=== PATIENT | female | born 1965 | race Caucasian/White ===

== ENCOUNTER → 2022-05-29 07:59 | Outpatient (CLI) | payer OTHER, SELFPAY | PROVIDERS: Visit Provider Physician Assistant | DX: R30.0 Dysuria (principal) | CPT/HCPCS: 87077; 87086; 87186 ==

== ENCOUNTER → 2023-04-01 08:16 | Outpatient (CLI) | payer OTHER, SELFPAY ==
--- NOTE | 2023-04-01 | DI.MG.S_ITS ---
BILATERAL DIGITAL SCREENING MAMMOGRAM 3D/2D WITH CAD: 04/01/2023 CLINICAL: Routine screening. Comparison is made to exams dated: 12/14/2021 breast MRI, 11/30/2021 mammogram, 11/03/2020 mammogram, and 11/02/2019 mammogram - outside location. Both breasts are extremely dense, which lowers the sensitivity of mammography (category d />75% glandular tissue). Current study was also evaluated with a Computer Aided Detection (CAD) system. No significant masses, calcifications, or other findings are seen in either breast. There has been no significant interval change. IMPRESSION: NEGATIVE There is no mammographic evidence of malignancy. A 1 year screening mammogram is recommended. Based on the Tyrer Cuzick model (a risk assessment model) the patient's lifetime risk is 16.3% and her 10 year risk is 6.1%. According to the ACR, ACS, and NCCN guidelines, an annual breast MRI exam along with mammogram is recommended if the patient's lifetime risk is 20% or greater. This exam was interpreted at Station ID: [id number]. NOTE: For mammograms, a report in lay terms will be sent to the patient. Approximately 15% of breast malignancies will not be visualized mammographically. In the management of a palpable breast mass, a negative mammogram must not discourage biopsy of a clinically suspicious lesion. Electronically Signed By: Juanito wilhelm/nadir:04/01/2023 12:03:19 letter sent: Normal Exam ACR BI-RADS Category 1: Negative 3341F
== END ==
PROVIDERS: PCP Physician Assistant; Referring Provider Physician Assistant; Visit Provider Physician Assistant
DX: Z12.31 Encounter for screening mammogram for malignant neoplasm of breast (principal)
CPT/HCPCS: 77063; 77067

== ENCOUNTER 2023-10-16 08:31 | Observation (INO) | payer OTHER, SELFPAY ==
[2023-10-16] VITALS (12 sets, daily range): BP systolic 97–136; BP diastolic 56–67; PULSE 51–73; RESP 14–18; TEMP 36.8; O2SAT 97–100; BMI 27.1
--- NOTE | 2023-10-16 08:54 | ED.ABDPAIN ---
HPI - Abdominal Pain General Chief Complaint: Abdominal Pain Stated Complaint: ABD lower R pain,vomiting, fever Time Seen by Provider: 10/16/23 08:54 Source: patient Mode of arrival: Ambulatory Limitations: no limitations History of Present Illness HPI narrative: 57-year-old female with history of hypothyroidism and dyslipidemia. Patient presents with abdominal pain that started periumbilical yesterday around noon is since moved to the right lower quadrant. She denies any back or flank pain. She had temperatures up to 99 F at home. Patient states she is had nausea and had several episodes of vomiting overnight, states minimal output but no blood or black emesis. No bile. Patient states no dysuria, urgency or frequency. No vaginal bleeding or discharge. She has been constipated she has not had a bowel movement in a day and a half which is atypical. She states she has been passing flatus regularly. Patient states she has had prior breast reduction, prior hernia repair in 4th grade on the right. No known drug allergies. No tobacco, rare alcohol, no recreational drugs. Accompanied by her . Verona Mehta is her primary care Related Data Home Medications Medication Instructions Recorded Confirmed levothyroxine 50 mcg capsule 50 mcg PO DAILY 05/29/22 10/16/23 rosuvastatin 10 mg tablet 10 mg PO DAILY 10/16/23 10/16/23 Previous Rx's Medication Instructions Recorded amoxicillin 875 mg-potassium 1 tab PO BID #10 tabs 10/16/23 clavulanate 125 mg tablet Allergies Allergy/AdvReac Type Severity Reaction Status Date / Time No Known Drug Allergies Allergy Verified 10/16/23 08:41 Review of Systems Review of Systems ROS Unobtainable: All systems reviewed & are unremarkable except as noted in HPI and below Patient History Social History Smoking Status: Never smoker Smoking Status: Never smoker alcohol intake frequency: 0-2 drinks per day Substance Use Type: does not use Exam Narrative Exam Narrative: GENERAL: Alert and oriented x three, female in moderate distress. HEENT: Head normocephalic, atraumatic, EOMI, pupils reactive, face symmetric, moist mucous membranes NECK: Supple, full range of motion CARDIOVASCULAR: Regular rate and rhythm without murmurs, rubs or gallops. RESPIRATORY: Breath sounds equal bilaterally, no wheezes rales or rhonchi. ABDOMEN: Soft, positive for right lower quadrant pain very localized on exam, Normoactive bowel sounds all 4 quadrants. No guarding or rebound, rigidity, no mass, no distention : No CVA tenderness EXTREMITIES: Normal range of motion, no clubbing or edema. Neurovascularly intact NEUROLOGICAL: Cranial nerves II through XII grossly intact. Moving all extremities SKIN: Warm, dry, no petechiae, no rashes or lesions. Initial Vital Signs Initial Vital Signs: Vital Signs Temperature 98.2 F 10/16/23 08:35 Pulse Rate 66 10/16/23 08:35 Respiratory Rate 18 10/16/23 08:35 Blood Pressure 136/66 10/16/23 08:35 Pulse Oximetry 99 10/16/23 08:35 Oxygen Delivery Method Room Air 10/16/23 08:35 Course Orders Ordered: ED Orders 10/16/23 09:00 Complete Blood Count AUTO DIFF Stat Comprehensive Metabolic Panel Stat Lipase Stat 10/16/23 09:12 CT abdomen pelvis w con Stat 10/16/23 10:46 Education, smoking cessation ONGOING Acetaminophen (Acetaminophen 325 Mg Tablet) 650 mg PO Q6H [facility] Last Admin: 10/16/23 17:04 Dose: 650 mg Documented By: Admin: 10/16/23 14:29 Dose: 650 mg Documented By: EM Amoxicillin/Clavulanate Potassium (Amoxicillin/Clav 875/125 Mg) 1 tab PO BID [facility] Celecoxib (Celecoxib 100 Mg Capsule) 200 mg PO BID [facility] Last Admin: 10/16/23 14:30 Dose: 200 mg Documented By: EM Sodium Chloride (Normal Saline 0.9%) 1,000 mls @ 100 mls/hr IV CONT [facility] Last Admin: 10/16/23 14:31 Dose: 100 mls/hr Documented By: EM Morphine Sulfate (Morphine 4 Mg/Ml Inj) 3 mg IV Q2HR PRN PRN Reason: severe pain Naloxone HCl (Naloxone 0.4 Mg/Ml Vial) 0.2 mg IV Q2MIN PRN PRN Reason: Opiate Reversal Ondansetron HCl (Ondansetron 4 Mg Odt) 4 mg PO NOW PRN PRN Reason: Nausea And Vomiting Ondansetron HCl (Ondansetron 4 Mg/2 Ml Inj) 4 mg IV NOW PRN PRN Reason: Nausea And Vomiting Last Admin: 10/16/23 09:06 Dose: 4 mg Documented By: SCARLET Oxycodone HCl (Oxycodone Ir 5 Mg Tablet) 5 mg PO Q3H PRN PRN Reason: Pain, Moderate (4-6) Discontinued Medications Gabapentin (Gabapentin 300 Mg Capsule) 300 mg PO NOW ONE Stop: 10/16/23 10:47 Last Admin: 10/16/23 14:29 Dose: 300 mg Documented By: LIONEL Sodium Chloride (Normal Saline 0.9%) 1,000 mls @ 1,000 mls/hr IV BOLUS ONE Stop: 10/16/23 10:11 Last Infusion: 10/16/23 11:00 Dose: Infused Documented By: Admin: 10/16/23 09:21 Dose: 1,000 mls/hr Documented By: SCARLET Piperacillin Sod/Tazobactam (Sod 4.5 gm/ Sodium Chloride) 100 mls @ 200 mls/hr IV NOW ONE Stop: 10/16/23 10:39 Last Infusion: 10/16/23 12:02 Dose: Infused Documented By: Admin: 10/16/23 11:18 Dose: 200 mls/hr Documented By: RICHELLE Piperacillin Sod/Tazobactam (Sod 3.375 gm/ Sodium Chloride) 100 mls @ 25 mls/hr IV Q8H [facility] Last Admin: 10/16/23 11:22 Dose: Not Given Documented By: VLAD Piperacillin Sod/Tazobactam (Sod 3.375 gm/ Sodium Chloride) 100 mls @ 25 mls/hr IV Q8H [facility] Last Admin: 10/16/23 14:31 Dose: 25 mls/hr Documented By: LIONEL Ketorolac Tromethamine (Ketorolac 30 Mg/Ml Vial) 15 mg IV NOW ONE Stop: 10/16/23 09:13 Last Admin: 10/16/23 09:21 Dose: 15 mg Documented By: SCARLET Scopolamine (Scopolamine 1 Patch) 1 patch TOP NOW ONE Stop: 10/16/23 10:47 Last Admin: 10/16/23 14:33 Dose: Not Given Documented By: LIONEL Vital Signs Vital signs: Vital Signs - 8 hr 10/16/23 10:10 10/16/23 10:10 10/16/23 10:30 Pulse Rate 57 L 55 L Respiratory Rate 18 Blood Pressure 103/67 102/56 L Pulse Oximetry 100 97 Oxygen Delivery Method Room Air MDM - Abdominal Pain Lab Data 10/16/23 09:00 10/16/23 09:00 Labs: Lab Results 10/16/23 Range/Units 09:00 WBC 13.0 H (4.5-11.0) X10^3/uL RBC 4.44 (4.0-5.2) X10^6/uL Hgb 12.9 (12.0-16.0) g/dL Hct 38.2 (36-46) % MCV 86.0 (80-100) fL MCH 29.1 (26-34) PG MCHC 33.8 (30-36) % RDW 12.8 (11.6-14.8) % Plt Count 274 (150-400) X10^3/uL Neut % (Auto) 88.3 H (50-75) % Lymph % (Auto) 6.3 L (25-40) % [place] % (Auto) 5.2 (3-14) % Eos % (Auto) 0.0 L (2-4) % Baso % (Auto) 0.2 (0-2) % Neut # (Auto) 49479 H (7028-4197) /uL Lymph # (Auto) 800 L (1911-3887) /uL [place] # (Auto) 700 (0-900) /uL Eos # (Auto) 0 (0-450) /uL Baso # (Auto) 0 (0-100) /uL Sodium 131 L (137-145) mmol/L Potassium 4.0 (3.4-5.1) mmol/L Chloride 100 (98-107) mmol/L Carbon Dioxide 24 (22-32) mmol/L BUN 16 (7-17) mg/dL Creatinine 0.67 (0.52-1.04) mg/dL Estimated GFR > 60 (>60) mL/min BUN/Creatinine Ratio 23.9 H (6-22) Glucose 130 H (70-100) mg/dL Calcium 9.8 (8.4-10.2) mg/dL Total Bilirubin 0.8 (0.2-1.3) mg/dL AST 28 (14-36) IU/L ALT 24 (<35) IU/L Alkaline Phosphatase 54 (38-126) U/L Total Protein 7.7 (6.3-8.2) g/dL Albumin 4.5 (3.5-5.0) g/dL Globulin 3.2 (1.7-4.1) g/dL Albumin/Globulin Ratio 1.4 (1.0-2.8) Lipase 113 (23-300) U/L Point of care testing: Urine Dip Bedside Urine Glucose Negative Bedside Urine Bilirubin - Negative Bedside Urine Ketone +/- 5 Urine Specific [place] 1.005 Bedside Urine Occult Blood +/- Bedside Urine pH 6.0 Bedside Urine Protein - Negative Bedside Urine Urobilinogen - Negative Bedside Urine Nitrite - Negative Bedside Urine Leukocytes - Negative Esterase Imaging Data CT scan - abdomen/pelvis: Radiologist's Impression: [address] [address] [address] Scan Report Signed Patient: Sotero Nova MR#: [id number] : 1965 Acct:[id number] Age/Sex: 57 / F Date of Service: 10/16/23 Loc: ED Accession Number: [id number] Procedure: CT abdomen pelvis w con Ordering Provider: Suha Conde D.O. PROCEDURE: CT ABDOMEN PELVIS W CON INDICATIONS: RLQ pain, started periumbilical, vomitied overnight. TECHNIQUE: After the administration of intravenous contrast, axial sections acquired from the lung bases to the pubic symphysis. Coronal and sagittal reformats were performed. For radiation dose reduction, the following was used: automated exposure control, adjustment of mA and/or kV according to patient size. COMPARISON: None. FINDINGS: Image quality: Good Lower chest: Basal atelectasis. No pleural effusions. A tiny nodule is seen in the middle lobe measuring 5 mm. Optional follow-up may be obtained for high risk patients. Heart size is at the upper limit of normal. Liver: Subcentimeter posterior right lobe lesion is too small to characterize, possibly a cyst. Gallbladder and biliary system: Gallbladder is unremarkable. There is mild prominence of the intrahepatic biliary tree. The CBD is nondilated. Pancreas: Unremarkable Spleen: Nonenlarged Adrenals: No discrete nodule Kidneys: No hydronephrosis. No suspicious solid mass. Vessels and lymph nodes: No abdominal aortic aneurysm or pathologic lymph nodes by size criteria. There is a partial filling defect in the portal vein Bowel and peritoneum: No small bowel obstruction. Moderate to large fecal loading. No pathologic ascites. The suspected appendix is very short (3/13), with a suspected stone at the neck. This measures 1.2 cm. Body wall: Unremarkable Pelvis: Reproductive organs not well evaluated on this study. Suspected fibroids are present. Bladder unremarkable. Bones: No acute or suspicious osseous findings. IMPRESSION: Suspected short appendix versus appendiceal stump with dilation and mild surrounding fat stranding. There is a appendicolith at the neck. Given reported history, appendicitis or stump appendicitis is likely. There is a filling defect in the portal vein, which may represent mixing artifact. In addition, the intrahepatic biliary system is mildly prominent. Please correlate with LFTs and consider sonographic correlation (with Doppler). Other findings as above. Dictated by: Richar Matson M.D. on 10/16/2023 at 10:19 Approved by: Richar Matson M.D. on 10/16/2023 at 10:26 MDM Narrative Medical decision making narrative: 57-year-old female with complaint of periumbilical pain which has since moved to the right lower quadrant exam is concerning for potential appendicitis pain is very localized to that region. No back or flank pain. She is afebrile here with a T-max at home of 99 did have some nausea and vomiting overnight. Has been mildly constipated but had bowel movement a day and a half ago with flatus being passed regularly. Plan for labs, urine sample, fluids, dose of pain medication and CT abdomen pelvis to rule out appendicitis versus colitis, obstruction, renal or other issues. Labs patient has a white count of 13 normal hemoglobin and platelets 274 with leftward shift. Sodium is low at 131, normal potassium normal renal function with a glucose of 130, calcium 9.8 with a LFTs and lipase normal Urine CT abdomen pelvis shows changes consistent with a appendicitis. Filling defect portal vein may represent mixing artifact in addition intrahepatic biliary system mildly prominent. Correlate with LFTs and consider sonographic correlation. Tylenol nodule middle lobe 5 mm subcentimeter pies rotator lobe too small to characterize possibly assist. Spoke with Dr. Esposito who accepts for admission for appendicitis She will put in orders. Discharge Plan Departure Patient Disposition: Admitted As Inpatient Clinical Impression: Acute appendicitis, Pulmonary nodule Admit Date/Time: 10/16/23 10:47 Admit Provider: Akilah Esposito
[2023-10-16] MEDS: ONDANSETRON 4 MG/2 ML INJ IV (09:06)
--- NOTE | 2023-10-16 09:12 | DI.CT.S_ITS ---
PROCEDURE: CT ABDOMEN PELVIS W CON INDICATIONS: RLQ pain, started periumbilical, vomitied overnight. TECHNIQUE: After the administration of intravenous contrast, axial sections acquired from the lung bases to the pubic symphysis. Coronal and sagittal reformats were performed. For radiation dose reduction, the following was used: automated exposure control, adjustment of mA and/or kV according to patient size. COMPARISON: None. FINDINGS: Image quality: Good Lower chest: Basal atelectasis. No pleural effusions. A tiny nodule is seen in the middle lobe measuring 5 mm. Optional follow-up may be obtained for high risk patients. Heart size is at the upper limit of normal. Liver: Subcentimeter posterior right lobe lesion is too small to characterize, possibly a cyst. Gallbladder and biliary system: Gallbladder is unremarkable. There is mild prominence of the intrahepatic biliary tree. The CBD is nondilated. Pancreas: Unremarkable Spleen: Nonenlarged Adrenals: No discrete nodule Kidneys: No hydronephrosis. No suspicious solid mass. Vessels and lymph nodes: No abdominal aortic aneurysm or pathologic lymph nodes by size criteria. There is a partial filling defect in the portal vein Bowel and peritoneum: No small bowel obstruction. Moderate to large fecal loading. No pathologic ascites. The suspected appendix is very short (3/13), with a suspected stone at the neck. This measures 1.2 cm. Body wall: Unremarkable Pelvis: Reproductive organs not well evaluated on this study. Suspected fibroids are present. Bladder unremarkable. Bones: No acute or suspicious osseous findings. IMPRESSION: Suspected short appendix versus appendiceal stump with dilation and mild surrounding fat stranding. There is a appendicolith at the neck. Given reported history, appendicitis or stump appendicitis is likely. There is a filling defect in the portal vein, which may represent mixing artifact. In addition, the intrahepatic biliary system is mildly prominent. Please correlate with LFTs and consider sonographic correlation (with Doppler). Other findings as above. Dictated by: Richar Matson M.D. on 10/16/2023 at 10:19 Approved by: Richar Matson M.D. on 10/16/2023 at 10:26
[2023-10-16 09:18] LABS: Add Manual Diff / Slide Review NO; Basophils Absolute Auto 0 /uL (0-100); Basophils Percent Auto 0.2 % (0-2); Eosinophils Absolute Auto 0 /uL (0-450); Hematocrit 38.2 % (36-46); Hemoglobin 12.9 g/dL (12.0-16.0); Lymphocytes Absolute Auto 800 /uL (1100-4500); Lymphocytes Percent Auto 6.3 % (25-40); Mean Corpuscular HGB Conc 33.8 % (30-36); Mean Corpuscular Hemoglobin 29.1 PG (26-34); Monocytes Absolute Auto 700 /uL (0-900); Monocytes Percent Auto 5.2 % (3-14); Neutrophils Absolute Auto 11500 /uL (1500-7000); Neutrophils Percent Auto 88.3 % (50-75); Platelet Count 274 X10^3/uL (150-400); Red Blood Cell Count 4.44 X10^6/uL (4.0-5.2); Red Cell Distribution Width 12.8 % (11.6-14.8)
[2023-10-16] MEDS: KETOROLAC 30 MG/ML VIAL 15 MG IV (09:21)
[2023-10-16] MEDS: SODIUM CHLORIDE 0.9% 1,000 ML 1000 ML IV (09:21)
[2023-10-16 09:24] LABS: Alanine Aminotransferase 24 IU/L (<35); Albumin 4.5 g/dL (3.5-5.0); Albumin Globulin Ratio 1.4 (1.0-2.8); Alkaline Phosphatase 54 U/L (38-126); Aspartate Aminotransferase 28 IU/L (14-36); BUN Creatinine Ratio 23.9 (6-22); Bilirubin Total 0.8 mg/dL (0.2-1.3); Blood Urea Nitrogen 16 mg/dL (7-17); Calcium 9.8 mg/dL (8.4-10.2); Carbon Dioxide 24 mmol/L (22-32); Chloride 100 mmol/L (98-107); Estimated Glomerular Filt Rate > 60 mL/min (>60); Globulin 3.2 g/dL (1.7-4.1); Glucose 130 mg/dL (70-100); HEMOLYSIS < 15 (0-50); Lipase 113 U/L (23-300); Sodium 131 mmol/L (137-145); Total Protein 7.7 g/dL (6.3-8.2)
[2023-10-16] MEDS: PIPERACILLIN/TAZO 4.5 GM in SODIUM CHLORIDE 0.9% 100 ML IV (11:18)
--- NOTE | 2023-10-16 13:35 | PC.NURSE ---
Pt laying supine in bed with spouse at bedside. This RN gave them an update of plan of care and they have no further questions or needs at this time. Pt reports that her pain is tolerable and denies further pain medication. Pt respirations are regular and unlabored. Skin is warm dry and pink. Pt is A&Ox4.
[2023-10-16] MEDS: ACETAMINOPHEN 325 MG TABLET 650 MG PO ×2 (14:29→17:04)
[2023-10-16] MEDS: GABAPENTIN 300 MG CAPSULE PO (14:29)
[2023-10-16] MEDS: CELECOXIB 100 MG CAPSULE 200 MG PO (14:30)
[2023-10-16] MEDS: SODIUM CHLORIDE 0.9% 1,000 ML 100 ML IV (14:31)
[2023-10-16] MEDS: PIPERACILLIN/TAZO 3.375 GM in SODIUM CHLORIDE 0.9% 100 ML IV (14:31)
--- NOTE | 2023-10-16 16:26 | P.HP_ITS ---
History of Present Illness History of Present Illness Date Patient Seen: 10/16/23 Time Patient Seen: 16:26 Date of Onset of Symptoms: 10/15/23 Chief complaint: ABD lower R pain,vomiting, fever Narrative: Acute appendicitis per CT scan with fecal lith. Has had 2 doses Zosyn and feels better. Pain was RLQ and sharp, anorexia, no emesis. [facility] Social History Smoking Status: Never smoker Meds Home Medications and Allergies Home Medications Medication Instructions Recorded Confirmed Type levothyroxine 50 mcg capsule 50 mcg PO DAILY 05/29/22 10/16/23 History amoxicillin 875 mg-potassium 1 tab PO BID #10 tabs 10/16/23 Rx clavulanate 125 mg tablet rosuvastatin 10 mg tablet 10 mg PO DAILY 10/16/23 10/16/23 History Allergies Allergy/AdvReac Type Severity Reaction Status Date / Time No Known Drug Allergies Allergy Verified 10/16/23 08:41 Review of Systems Review of Systems ROS: Yes All systems reviewed with the patient and are negative except as otherwise documented Exam Vital Signs (past 8 hours): - 10/16/23 08:35 10/16/23 08:37 10/16/23 08:38 Temperature 98.2 F Pulse Rate 66 73 70 Respiratory Rate 18 Blood Pressure 136/66 Pulse Oximetry 99 97 98 Oxygen Delivery Method Room Air 10/16/23 08:38 10/16/23 09:00 10/16/23 09:30 Temperature Pulse Rate Respiratory Rate Blood Pressure 136/66 118/66 Pulse Oximetry 100 Oxygen Delivery Method Room Air 10/16/23 09:30 10/16/23 10:10 10/16/23 10:10 Temperature Pulse Rate 54 L 57 L Respiratory Rate Blood Pressure 103/67 Pulse Oximetry 100 100 Oxygen Delivery Method 10/16/23 10:30 10/16/23 10:52 10/16/23 11:30 Temperature Pulse Rate 55 L 55 L Respiratory Rate 18 18 Blood Pressure 102/56 L Pulse Oximetry 97 97 Oxygen Delivery Method Room Air Room Air Room Air 10/16/23 12:00 10/16/23 12:48 10/16/23 13:30 Temperature Pulse Rate 55 L 52 L 60 Respiratory Rate 18 18 14 Blood Pressure 99/58 L 106/60 Pulse Oximetry 97 99 99 Oxygen Delivery Method Room Air Room Air Room Air 10/16/23 14:10 Temperature 98.3 F Pulse Rate 51 L Respiratory Rate 16 Blood Pressure 97/58 L Pulse Oximetry 99 Oxygen Delivery Method Oxygen Delivery Method Room Air Const General: cooperative, healthy appearing and comfortable [facility] Head: normocephalic and atraumatic Ears: hearing grossly normal bilaterally Eyes General: appearance normal, both eyes and all related structures Sclera: sclerae normal Neck Neck: normal visual inspection and trachea midline Resp Effort & Inspection: normal respiratory effort and able to speak in complete sentences Cardio Rate: regular rate Rhythm: regular rhythm GI Palpation: soft, No firm and No guarding Skin General: no rashes or lesions noted and elasticity normal Neuro General: patient alert, patient awake and patient oriented x3 Cognition: normal cognition Psych Appearance: grossly normal Mental Status: mental status grossly normal Judgment: judgment good Objective Labs 10/16/23 09:00 10/16/23 09:00 Labs: Laboratory Results - last 24 hr 10/16/23 09:00 WBC 13.0 H RBC 4.44 Hgb 12.9 Hct 38.2 MCV 86.0 MCH 29.1 MCHC 33.8 RDW 12.8 Plt Count 274 Neut % (Auto) 88.3 H Lymph % (Auto) 6.3 L [place] % (Auto) 5.2 Eos % (Auto) 0.0 L Baso % (Auto) 0.2 Neut # (Auto) 54180 H Lymph # (Auto) 800 L [place] # (Auto) 700 Eos # (Auto) 0 Baso # (Auto) 0 Sodium 131 L Potassium 4.0 Chloride 100 Carbon Dioxide 24 BUN 16 Creatinine 0.67 Estimated GFR > 60 BUN/Creatinine Ratio 23.9 H Glucose 130 H Calcium 9.8 Total Bilirubin 0.8 AST 28 ALT 24 Alkaline Phosphatase 54 Total Protein 7.7 Albumin 4.5 Globulin 3.2 Albumin/Globulin Ratio 1.4 Lipase 113 Assessment & Plan Assessment & Plan narrative: Acute appendicitis with fecal lith. Responding to antibiotics. Discussed CODA trial of medical management and the 30% chance of recurrent appendicitis. Patient wants to try medical management Plan: discharge home this pm if tolerating po. Switch to Augmentin BID for 5 days total.
--- NOTE | 2023-10-16 18:26 | PC.NURSE ---
Day shift: Paperwork signed and all questions answered. Pt has new MD script already. Spouse will be taking her home to their [place] house. Pain well controlled. Encouraged to return to this ED if symptoms worsen. Pt has all personal belongings. Left unit via at approx 1830.
--- NOTE | 2023-10-17 | PATH_ITS ---
[facility] Accession Number: [id number] No. of containers..01 Tissue . 01 Material submitted: . appendix - APPENDIX . 01 Diagnosis: Appendix, Appendectomy: Acute suppurative appendicitis with serositis. Negative for dysplasia and malignancy. MRV 10/26/2023 1618 Local . 01 Electronically signed: . Sophia Diana MD, Pathologist NPI- [id number] . 01 Gross description: . The specimen is received in formalin labeled with the patient's name, , and appendix, consists of a garcia to brown vermiform appendix measuring 4.3 cm in length by 1.2 cm in average diameter with angelo-garcia roughened serosa with a full thickness defect measuring 0.5 cm in greatest dimension. Adherent material consistent with exudate is identified on the serosa. The margin is inked blue, and sectioning reveals a patent lumen averaging 0.3 cm in diameter filled with brown, semi-solid material. The marcial are angeol-black, average 0.3 cm thick with no lesions identified. Professional Driver sections to include the margin, one-half of the bisected distal tip, and cross section with defect, are submitted in cassette A1. ([id number]) /MRV 10/20/2023 1532 Local . 01 Pathologist provided ICD-10: K35.80 . 01 CPT . 747422 Performed at: [facility] [address] [place] [address], [place], [place] [id number] MD Derrell Betancourt MD Phone: [phone]
[2023-10-17 15:13] VITALS: BP 90/55; PULSE 81; RESP 14; TEMP 37.1; O2SAT 95
[2023-10-17] MEDS: LACTATED RINGERS 1,000 ML 42 ML IV (15:22)
[2023-10-17 15:23] VITALS: BMI 27.1
--- NOTE | 2023-10-17 15:52 | SUR.OPER ---
Supine on padded OR bed, head on pillow, safety belt at thigh, left arm padded and tucked at side. Right arm secured on padded arm board <90 degrees abduction. Legs uncrossed. Safety strap. Tape over blanket to secure lower legs.
[2023-10-17 16:19] VITALS: BP 110/65; PULSE 73; RESP 18; TEMP 36.5; O2SAT 95
[2023-10-17 16:25] VITALS: BP 99/62; PULSE 71; RESP 15; TEMP 36.7; O2SAT 95
[2023-10-17 16:33] VITALS: BP 94/57; PULSE 68; RESP 13; TEMP 36.7; O2SAT 96
[2023-10-17 16:39] VITALS: BP 95/56; PULSE 64; RESP 14; TEMP 36.7; O2SAT 96
== END 2023-10-16 18:32 | disposition home or self-care (01) ==
LOC: ED 10:43 → AC 10:48
PROVIDERS: Admitting Provider Surgery; Emergency Provider Emergency Medicine; PCP Physician Assistant; Visit Provider Surgery
PROC: 0DTJ4ZZ Resection of Appendix, Percutaneous Endoscopic Approach (ICD-10-PCS; CPT 44970; principal; 2023-10-17 16:00)
DX: K35.80 Unspecified acute appendicitis (principal); K38.1 Appendicular concretions
CPT/HCPCS: 36415; 74177; 80053; 81003; 83690; 85025; 99284; G0378; J1885; J2405; J2543; J3010; Q9967

== ENCOUNTER 2023-10-16 21:50 | Observation (INO) | payer OTHER, SELFPAY ==
[2023-10-16 13:54] VITALS: BMI 27.1
[2023-10-16 21:56] VITALS: BP 116/66; PULSE 60; RESP 18; TEMP 37.2; O2SAT 99; BMI 25.7
[2023-10-16 22:05] VITALS: PULSE 60; O2SAT 99
--- NOTE | 2023-10-16 22:05 | ED.GENADULT ---
HPI - General Adult General Chief complaint: Abdominal Pain Stated complaint: appendix pain Time Seen by Provider: 10/16/23 22:04 Source: patient Mode of arrival: Ambulatory History of Present Illness HPI narrative: 57-year-old woman seen earlier today diagnosed with appendicitis, admitted to the surgical service with IV antibiotics and with shared decision-making she was discharged home this afternoon as pain was improving with discussion of oral antibiotics treatment. Unfortunately, this seems to have failed and she is back with increasing right lower quadrant pain and returns for further evaluation. She is had little to eat over the course of the day, no vomiting, no bowel movement. Related Data Home Medications Medication Instructions Recorded Confirmed levothyroxine 50 mcg capsule 50 mcg PO DAILY 05/29/22 10/16/23 rosuvastatin 10 mg tablet 10 mg PO DAILY 10/16/23 10/16/23 Previous Rx's Medication Instructions Recorded amoxicillin 875 mg-potassium 1 tab PO BID #10 tabs 10/16/23 clavulanate 125 mg tablet Allergies Allergy/AdvReac Type Severity Reaction Status Date / Time No Known Drug Allergies Allergy Verified 10/16/23 08:41 Review of Systems Review of Systems Narrative: Pertinent positive and negative findings as per HPI Patient History Medical History (Updated 10/16/23 @ 22:18 by Lindy Clarke MD) Hyperlipidemia Hypothyroidism (acquired) Social History household members: spouse Smoking Status: Never smoker Smoking Status: Never smoker alcohol intake frequency: 0-2 drinks per day Substance Use Type: does not use Exam Initial Vital Signs Initial Vital Signs: Vital Signs Temperature 98.9 F 10/16/23 21:56 Pulse Rate 60 10/16/23 21:56 Respiratory Rate 18 10/16/23 21:56 Blood Pressure 116/66 10/16/23 21:56 Pulse Oximetry 99 10/16/23 21:56 Oxygen Delivery Method Room Air 10/16/23 21:56 General: Pale, obvious pain but Able to give a complete and coherent history. Well-nourished well-developed HEENT: Moist mucous membranes, normal sclera with reactive pupils, Respiratory: Lungs are clear to auscultation, no wheezing no rales no rhonchi. Full and symmetrical air movement Cardiac: Regular rate and rhythm no murmurs no bruits Abdomen: Significant tenderness with rebound in the right lower quadrant, with palpation in the left lower quadrant she has rebound in the right lower quadrant. There is no guarding. No flank pain. Skin: Warm and dry, no rashes Neurologic: Grossly neurologically intact with no obvious asymmetries or abnormalities Extremities: No trauma, well perfused Psych: Cooperative, appropriate insight and affect Course Orders Ordered: ED Orders 10/16/23 22:00 Complete Blood Count AUTO DIFF Stat Comprehensive Metabolic Panel Stat Lipase Stat 10/16/23 22:08 Consult to General Surgery Urgent Hydromorphone HCl (Hydromorphone 0.5 Mg Inj) 0.5 mg IV Q15MIN PRN PRN Reason: Pain, Last Admin: 10/16/23 22:50 Dose: 0.5 mg Documented By: AT Hydromorphone HCl (Hydromorphone 0.5 Mg Inj) 0.5 mg IV Q2H PRN PRN Reason: Pain, Severe (7-10) Piperacillin Sod/Tazobactam (Sod 3.375 gm/ Sodium Chloride) 100 mls @ 25 mls/hr IV Q8H CROW Last Admin: 10/16/23 22:17 Dose: 25 mls/hr Documented By: OW Sodium Chloride (Normal Saline 0.9%) 1,000 mls @ 125 mls/hr IV CONT CROW Last Infusion: 10/16/23 22:51 Dose: 125 mls/hr Documented By: Infusion: 10/16/23 22:45 Dose: 0 mls/hr Documented By: Admin: 10/16/23 22:15 Dose: 125 mls/hr Documented By: OW Ondansetron HCl (Ondansetron 4 Mg Odt) 4 mg PO NOW PRN PRN Reason: Nausea And Vomiting Ondansetron HCl (Ondansetron 4 Mg/2 Ml Inj) 4 mg IV NOW PRN PRN Reason: Nausea And Vomiting Last Admin: 10/16/23 22:17 Dose: 4 mg Documented By: OW Ondansetron HCl (Ondansetron 4 Mg/2 Ml Inj) 4 mg IV Q4HR PRN PRN Reason: Nausea And Vomiting Discontinued Medications Ketorolac Tromethamine (Ketorolac 30 Mg/Ml Vial) 15 mg IV NOW ONE Stop: 10/16/23 22:09 Last Admin: 10/16/23 22:17 Dose: 15 mg Documented By: OW Vital Signs Vital signs: Vital Signs - 8 hr 10/16/23 21:56 10/16/23 22:05 10/16/23 22:08 Temperature 98.9 F Pulse Rate 60 60 Respiratory Rate 18 Blood Pressure 116/66 113/62 Pulse Oximetry 99 99 Oxygen Delivery Method Room Air 10/16/23 22:08 Temperature Pulse Rate 60 Respiratory Rate Blood Pressure Pulse Oximetry 99 Oxygen Delivery Method Medical Decision Making Lab Data 10/16/23 22:00 10/16/23 22:00 Labs: Lab Results 10/16/23 Range/Units 22:00 WBC 8.9 (4.5-11.0) X10^3/uL RBC 4.40 (4.0-5.2) X10^6/uL Hgb 13.0 (12.0-16.0) g/dL Hct 38.7 (36-46) % MCV 87.8 (80-100) fL MCH 29.6 (26-34) PG MCHC 33.7 (30-36) % RDW 12.9 (11.6-14.8) % Plt Count 283 (150-400) X10^3/uL Neut % (Auto) 70.0 (50-75) % Lymph % (Auto) 20.4 L (25-40) % [place] % (Auto) 8.5 (3-14) % Eos % (Auto) 0.5 L (2-4) % Baso % (Auto) 0.6 (0-2) % Neut # (Auto) 6200 (2265-7462) /uL Lymph # (Auto) 1800 (2188-6782) /uL [place] # (Auto) 800 (0-900) /uL Eos # (Auto) 0 (0-450) /uL Baso # (Auto) 100 (0-100) /uL Sodium 137 (137-145) mmol/L Potassium 3.8 (3.4-5.1) mmol/L Chloride 103 (98-107) mmol/L Carbon Dioxide 24 (22-32) mmol/L BUN 17 (7-17) mg/dL Creatinine 0.82 (0.52-1.04) mg/dL Estimated GFR > 60 (>60) mL/min BUN/Creatinine Ratio 20.7 (6-22) Glucose 123 H (70-100) mg/dL Calcium 9.3 (8.4-10.2) mg/dL Total Bilirubin 0.9 (0.2-1.3) mg/dL AST 26 (14-36) IU/L ALT 23 (<35) IU/L Alkaline Phosphatase 46 (38-126) U/L Total Protein 7.4 (6.3-8.2) g/dL Albumin 4.3 (3.5-5.0) g/dL Globulin 3.1 (1.7-4.1) g/dL Albumin/Globulin Ratio 1.4 (1.0-2.8) Lipase 114 (23-300) U/L MDM Narrative Medical decision making narrative: CC: Increasing appendicitis pain Complicating co-morbidities: Patient diagnosed with appendicitis this morning admitted to the hospital with IV antibiotics, feeling better, discharged home this afternoon and back with worsening pain. Data collected from: patient Medical records reviewed: ER notes from this morning, surgical admit and discharge are all reviewed Differential considered: Worsening appendicitis, failed outpatient oral antibiotic treatment Exam documented above, pertinent findings include: Significant right lower quadrant tenderness with rebound but no guarding. Lab Test results independently reviewed as above. Pertinent findings: Imaging studies independently reviewed: CT scan done earlier this morning is reviewed, consistent with developing appendicitis Consultations: Care is reviewed with Dr. Esposito. Recommendation is to admit the patient, IV pain control and antibiotics and likely surgical intervention tomorrow Treatments: IV started she is given pain medications, Zosyn as restarted, transition/bridging orders are written Discussion: 57-year-old woman with increasing right lower quadrant tenderness now with rebound but no guarding known appendicitis, failed trial of outpatient oral antibiotics. Will admit to Dr. Esposito. Findings reviewed with patient and her . Pain has been adequately controlled at this point. Zosyn is restarted. Questions are answered and bridging orders have been entered. Discharge Plan Departure Patient Disposition: Admitted as Observation Clinical Impression: Acute appendicitis Qualifiers: Acute appendicitis type: with localized peritonitis Appendicitis gangrene presence: unspecified whether gangrene present Appendicitis perforation presence: unspecified whether perforation present Appendicitis abscess presence: unspecified whether abscess present Qualified Code(s): K35.30 - Acute appendicitis with localized peritonitis, without perforation or gangrene Admit Date/Time: 10/16/23 22:14 Admit Provider: Akilah Esposito
[2023-10-16 22:08] VITALS: BP 113/62; PULSE 60; O2SAT 99
[2023-10-16 22:12] LABS: Add Manual Diff / Slide Review NO; Basophils Absolute Auto 100 /uL (0-100); Basophils Percent Auto 0.6 % (0-2); Eosinophils Absolute Auto 0 /uL (0-450); Eosinophils Percent Auto 0.5 % (2-4); Hematocrit 38.7 % (36-46); Lymphocytes Absolute Auto 1800 /uL (1100-4500); Lymphocytes Percent Auto 20.4 % (25-40); Mean Corpuscular HGB Conc 33.7 % (30-36); Mean Corpuscular Hemoglobin 29.6 PG (26-34); Mean Corpuscular Volume 87.8 fL (80-100); Monocytes Absolute Auto 800 /uL (0-900); Monocytes Percent Auto 8.5 % (3-14); Neutrophils Absolute Auto 6200 /uL (1500-7000); Platelet Count 283 X10^3/uL (150-400); Red Cell Distribution Width 12.9 % (11.6-14.8); White Blood Cell Count 8.9 X10^3/uL (4.5-11.0)
[2023-10-16] MEDS: SODIUM CHLORIDE 0.9% 1,000 ML 125 ML IV (22:15)
[2023-10-16 22:16] VITALS: BMI 25.7
[2023-10-16] MEDS: ONDANSETRON 4 MG/2 ML INJ IV (22:17)
[2023-10-16] MEDS: PIPERACILLIN/TAZO 3.375 GM in SODIUM CHLORIDE 0.9% 100 ML IV (22:17)
[2023-10-16] MEDS: KETOROLAC 30 MG/ML VIAL 15 MG IV (22:17)
[2023-10-16 22:20] LABS: Alanine Aminotransferase 23 IU/L (<35); Albumin 4.3 g/dL (3.5-5.0); Albumin Globulin Ratio 1.4 (1.0-2.8); Alkaline Phosphatase 46 U/L (38-126); Aspartate Aminotransferase 26 IU/L (14-36); BUN Creatinine Ratio 20.7 (6-22); Bilirubin Total 0.9 mg/dL (0.2-1.3); Blood Urea Nitrogen 17 mg/dL (7-17); Calcium 9.3 mg/dL (8.4-10.2); Carbon Dioxide 24 mmol/L (22-32); Chloride 103 mmol/L (98-107); Estimated Glomerular Filt Rate > 60 mL/min (>60); Globulin 3.1 g/dL (1.7-4.1); Glucose 123 mg/dL (70-100); HEMOLYSIS 18 (0-50); Lipase 114 U/L (23-300); Potassium 3.8 mmol/L (3.4-5.1); Sodium 137 mmol/L (137-145); Total Protein 7.4 g/dL (6.3-8.2)
[2023-10-16 22:30] VITALS: BP 121/58; PULSE 54; O2SAT 99
[2023-10-16] MEDS: HYDROMORPHONE 0.5 MG INJ IV (22:50)
[2023-10-16 22:51] VITALS: BP 113/71; PULSE 63; RESP 16; TEMP 36.6; O2SAT 98
[2023-10-17] VITALS (12 sets, daily range): BP systolic 92–103; BP diastolic 49–73; PULSE 53–87; RESP 16; TEMP 36.9–39.2; O2SAT 92–100
[2023-10-17] MEDS: HYDROMORPHONE 0.5 MG INJ IV ×3 (04:33→12:58)
[2023-10-17] MEDS: PIPERACILLIN/TAZO 3.375 GM in SODIUM CHLORIDE 0.9% 100 ML IV ×3 (06:10→20:07)
[2023-10-17 06:21] LABS: Appearance Urine UA CLEAR; Bilirubin Urine UA NEGATIVE (NEGATIVE); Color Urine UA YELLOW; Glucose Urine UA NEGATIVE (Negative); Ketones Urine UA NEGATIVE (NEGATIVE); Leukocyte Esterase Urine UA TRACE (NEGATIVE); Nitrite Urine UA NEGATIVE (Negative); Occult Blood Urine UA TRACE-INTACT (Negative); Protein Urine UA TRACE (Negative); Specific Gravity Urine UA 1.025 (1.000-1.035); Urobilinogen Urine UA 0.2 E.U./dL (0.2)
[2023-10-17 06:23] LABS: RBC Urine 1-5/HPF (0-5/HPF); WBC Urine 1-5/HPF (0-5/HPF); pH Urine UA 5.5 (4.5-8.0)
[2023-10-17 06:27] LABS: Bacteria Urine Few (2-10); Calcium Oxalate Crystals Urine Occasional; Culture Indicated Urine Specimen Cultured; Squamous Epithelial Cell Urine 1-5 /HPF (0-5/HPF)
--- NOTE | 2023-10-17 10:52 | CM.DANOTE ---
DCP Brief Assessment Note Pt is a 57yo F here following appendix pain. Pt was here yesterday, dc home on PO meds, and returned due to increasing pain. PCP Verona Thornton and self pay CHUCK SPLITTER reviewed EMR. Per RN, pt indep in room, A/O, ambulating, and overall likely has no CM needs. and adult children support available at dc. Visiting aging parents on [place]. Pending Vaibhav/surgery input for dc timeline. Pt may go to surgery today and dc home later. Plan: likely home with family when medically stable. Pending surgery POC. No CM needs identified at this time. CM team will continue to follow as needed. RIGO Jiménez Discharge Planning/Care Management CM Discharge Assessment Start: 10/17/23 10:51 Freq: Status: Active Protocol: Document 10/17/23 10:51 (Rec: 10/17/23 10:52 [id number]) Discharge Planning Assessment Assigned Manager It Security RIGO White DPOA/Assigned Designee Name Campos Nova (spouse) Contact Information [phone] Advance Directives? No History Provided By Medical Record Prior Living Arrangements House Household Members spouse Independent with ADL's Yes Is patient alert and oriented? Yes Comment pending if surgery Discharge Plan Home Transportation Arrangement family in POV Referrals Initiated None needed Whiteboard Updated in Patient Room with No name and ext. # of Manager It Security Review Status In Process Next Review Type Continued Stay Review
--- NOTE | 2023-10-17 12:24 | PM.HP.1 ---
History of Present Illness History of Present Illness Date Patient Seen: 10/17/23 Time Patient Seen: 12:24 Chief complaint: appendix pain Narrative: Re admitted from failed medical management of appendicitis. See previous H and P. PFSH Medical History Hyperlipidemia Hypothyroidism (acquired) Social History household members: spouse Smoking Status: Never smoker Meds Home Medications and Allergies Home Medications Medication Instructions Recorded Confirmed Type levothyroxine 50 mcg capsule 50 mcg PO DAILY 05/29/22 10/16/23 History amoxicillin 875 mg-potassium 1 tab PO BID #10 tabs 10/16/23 10/16/23 Rx clavulanate 125 mg tablet rosuvastatin 10 mg tablet 10 mg PO DAILY 10/16/23 10/16/23 History Allergies Allergy/AdvReac Type Severity Reaction Status Date / Time No Known Drug Allergies Allergy Verified 10/16/23 08:41 Review of Systems Review of Systems Narrative: RLQ pain recurrent but more intense ROS: Yes All systems reviewed with the patient and are negative except as otherwise documented Exam Vital Signs (past 8 hours): - 10/17/23 04:41 10/17/23 08:57 10/17/23 12:00 Temperature 98.6 F 100.7 F H Pulse Rate 76 86 87 Respiratory Rate 16 16 Blood Pressure 95/49 L 98/57 L 95/54 L Pulse Oximetry 93 100 99 Oxygen Flow Rate 0 Oxygen Delivery Method Room Air Oxygen Flow Rate 0 Const General: cooperative, healthy appearing and ill appearing Nutritional Appearance: average body habitus [facility] Head: normal to inspection, normocephalic and atraumatic Ears: hearing grossly normal bilaterally Eyes General: appearance normal, both eyes and all related structures Sclera: sclerae normal Neck Neck: normal visual inspection and trachea midline Resp Effort & Inspection: normal respiratory effort and able to speak in complete sentences Cardio Rate: regular rate Rhythm: regular rhythm GI Palpation: soft and tender (RLQ tenderness) Skin General: elasticity normal Neuro General: patient alert, patient awake and patient oriented x3 Cognition: normal cognition Psych Appearance: grossly normal Mental Status: mental status grossly normal Judgment: judgment good Objective Labs 10/16/23 22:00 10/16/23 22:00 Labs: Laboratory Results - last 24 hr 10/16/23 10/16/23 22:00 23:00 WBC 8.9 RBC 4.40 Hgb 13.0 Hct 38.7 MCV 87.8 MCH 29.6 MCHC 33.7 RDW 12.9 Plt Count 283 Neut % (Auto) 70.0 Lymph % (Auto) 20.4 L [place] % (Auto) 8.5 Eos % (Auto) 0.5 L Baso % (Auto) 0.6 Neut # (Auto) 6200 Lymph # (Auto) 1800 [place] # (Auto) 800 Eos # (Auto) 0 Baso # (Auto) 100 Sodium 137 Potassium 3.8 Chloride 103 Carbon Dioxide 24 BUN 17 Creatinine 0.82 Estimated GFR > 60 BUN/Creatinine Ratio 20.7 Glucose 123 H Calcium 9.3 Total Bilirubin 0.9 AST 26 ALT 23 Alkaline Phosphatase 46 Total Protein 7.4 Albumin 4.3 Globulin 3.1 Albumin/Globulin Ratio 1.4 Lipase 114 Urine Color Yellow Urine Appearance Clear Urine pH 5.5 Ur Specific [place] 1.025 Urine Protein Trace H Urine Glucose (UA) Negative Urine Ketones Negative Urine Occult Blood Trace-intact Urine Nitrate Negative Urine Bilirubin Negative Urine Urobilinogen 0.2 Ur Leukocyte Esterase Trace H Urine RBC 1-5/hpf Urine WBC 1-5/hpf Ur Squamous Epith Cells 1-5 /hpf Calcium Oxalate Crystal Occasional H Urine Bacteria Few (2-10) H Ur Culture Indicated? Specimen cultured Assessment & Plan Assessment & Plan narrative: Appendicitis Plan: lap appy Time Spent With Patient Time with patient: less than 30 minutes
--- NOTE | 2023-10-17 12:24 | PC.NURSE ---
Addendum entered by Kianna Mills R.N. 10/17/23 13:06: Called MD Esposito again 30 min later. Patient has an increase in sharp pain, oral temp is now 102.5. Gave IV Dilaudid, started IV zosyn. Asked MD Esposito about increasing fluids and/or tylenol while awaiting OR. MD Esposito stated to give tylenol, no increase in fluids at this time. All other vitals remaining stable. Will continue to monitor. Original Note: Day shift: Notified MD Esposito of patient's elevated temperature - 100.7. Asked MD if we could move up patient's surgery - I am concerned for appendix perforation. No repeat scan done when patient readmitted last night. said had to go first in OR, then patient would be next. Asked if any more to be done right now, said no. Will recheck vitals in 30 min and continue to monitor. Fluids running at 125mL/hr. Pt on IV zosyn.
[2023-10-17] MEDS: ACETAMINOPHEN 325 MG TABLET 975 MG PO (13:10)
[2023-10-17] MEDS: SODIUM CHLORIDE 0.9% 1,000 ML 125 ML IV (14:17)
--- NOTE | 2023-10-17 16:29 | PM.OP.1 ---
Operative Date/Time/Diagnoses Date of procedure: 10/17/23 Time of procedure: 16:29 Pre-op diagnosis: Ruptured appendicitis Post-op diagnosis: same Procedure & Clinicians Procedure: Laparoscopic appendectomy Same procedure as scheduled: Yes Indications: Ruptured appendicitis Surgeon: Akilah Esposito Click Yes if Unassisted: Yes Anesthesia Type: General and Local Operative Notes Findings: Ruptured appendicitis, stage III gangrenous Closure Type: primary Specimen(s): other (Appendix) Applied: drain(s) (15 Kyrgyz drain) Estimated Blood Loss (mL): 10 Procedure in detail: Preop diagnosis: Ruptured appendicitis Postop diagnosis: Same Operative procedure: Laparoscopic appendectomy Surgeon: Lara Esposito MD Anesthetic: General with ET tube intubation with local Findings: Ruptured appendicitis Procedure: Patient placed in a supine position. Prepped and draped in sterile fashion to expose her abdomen. Infraumbilical port site was placed using open technique a 12 mm port. Insufflation began all other ports were placed under direct vision including a 5 mm port in the suprapubic area and a 5 mm port in the left lower lateral abdomen. Appendix was identified, grasped and lifted cephalad for exposure of the mesentery. Mesentery was taken down with electrocautery and excellent hemostasis. A DALE stapling device/linear stapler was used to amputate the appendix at a healthy base. Staple line showed no signs of bleeding. Specimen was placed into an Endo-Catch bag and pulled through the infraumbilical port site intact. I then used suction irrigation to evacuate free purulent material from the pelvis. I then placed a 15 Kyrgyz drain into the pelvis bringing it out through the suprapubic port site. Was sutured to the skin with a 3-0 nylon. I then removed all ports and began closure. Closure consisted of interrupted 0 Vicryl for fascial closure of the infraumbilical port site. Skin was closed with a running 4-0 Vicryl. Steri-Strips and sterile dressings were placed. Patient was awakened, extubated, taken to recovery room in stable condition. Needle, instrument, sponge counts were correct. Blood loss: 10 mL Specimen: Appendix Complications: none Post-operative Condition: stable Disposition: PACU
[2023-10-17] MEDS: SCOPOLAMINE 1 PATCH TOP (16:59)
[2023-10-17] MEDS: ACETAMINOPHEN 325 MG TABLET 650 MG PO (20:07)
[2023-10-17] MEDS: GABAPENTIN 300 MG CAPSULE PO (20:22)
[2023-10-17] MEDS: CELECOXIB 200 MG CAPSULE PO (20:22)
[2023-10-17] MEDS: OXYCODONE IR 5 MG TABLET PO (21:32)
[2023-10-18 00:30] VITALS: BP 95/55; PULSE 52; RESP 16; TEMP 35.9; O2SAT 95
--- NOTE | 2023-10-18 02:49 | PC.NURSE ---
material handler 1st shift: Patient is AxOx4, VSS (BP & HR appear to run low at baseline), O2 saturation 94% on RA. Patient denies nausea, SOB, chest pain, dizziness. Appears lethargic, arouses to voice and speaks clearly. Pain is adequately controlled w/ ordered PO pain medication. x2 lap sites covered w/ gauze & tegaderm are CDI, KERMIT drain in place. IV Zosyn infusing as ordered. Requires stand-by assistance to ambulate to the bathroom, patient attempted to urinate throughout the night but could only void small amounts. Bladder scan showed 400cc @ 0200, notified MD Esposito, orders for straight cath placed and performed. 500cc urine drained. Call-light within reach, fall precautions in place, will continue to monitor.
[2023-10-18] MEDS: PIPERACILLIN/TAZO 3.375 GM in SODIUM CHLORIDE 0.9% 100 ML IV (03:03)
[2023-10-18 06:05] VITALS: BP 91/56; PULSE 55; RESP 16; TEMP 35.7; O2SAT 95
[2023-10-18 06:26] LABS: Add Manual Diff / Slide Review NO; Basophils Absolute Auto 0 /uL (0-100); Eosinophils Absolute Auto 0 /uL (0-450); Hematocrit 31.4 % (36-46); Hemoglobin 10.7 g/dL (12.0-16.0); Lymphocytes Absolute Auto 500 /uL (1100-4500); Lymphocytes Percent Auto 4.7 % (25-40); Mean Corpuscular Hemoglobin 29.7 PG (26-34); Mean Corpuscular Volume 87.5 fL (80-100); Monocytes Absolute Auto 500 /uL (0-900); Neutrophils Absolute Auto 9300 /uL (1500-7000); Neutrophils Percent Auto 90.3 % (50-75); Platelet Count 196 X10^3/uL (150-400); Red Blood Cell Count 3.59 X10^6/uL (4.0-5.2); Red Cell Distribution Width 13.5 % (11.6-14.8); White Blood Cell Count 10.3 X10^3/uL (4.5-11.0)
[2023-10-18] MEDS: PANTOPRAZOLE DR 40 MG TABLET PO (06:31)
[2023-10-18] MEDS: LEVOTHYROXINE 50 MCG TABLET PO (06:31)
[2023-10-18] MEDS: ACETAMINOPHEN 325 MG TABLET 650 MG PO (06:33)
[2023-10-18 08:11] VITALS: BP 95/63; PULSE 50; RESP 17; TEMP 36.5; O2SAT 95
[2023-10-18] MEDS: ATORVASTATIN 20 MG TABLET PO (08:52)
[2023-10-18] MEDS: CELECOXIB 200 MG CAPSULE PO (08:52)
[2023-10-18] MEDS: OXYCODONE IR 5 MG TABLET PO (10:32)
--- NOTE | 2023-10-18 11:51 | CM.DPNOTE ---
DCP Note QUALITY PROCESS AUDITOR reviewed EMR. Per RN, pt had some trouble voiding yesterday and needs drain removed. After drain removed and void, pt can dc home. Per surgeon, pt medically cleared to dc home. No CM needs. Plan: pt will dc home with family support. No CM needs identified at this time. CM team will continue to follow as needed RIGO Jiménez
--- NOTE | 2023-10-18 13:19 | P.PN_ITS ---
Subjective Subjective Date Patient Seen: 10/18/23 Time Patient Seen: 10:00 Interval history: S/P Lap appy from ruptured appendicitis Exam Vital Signs (past 8 hours): - 10/18/23 06:05 10/18/23 08:11 Temperature 96.3 F L 97.7 F Pulse Rate 55 L 50 L Respiratory Rate 16 17 Blood Pressure 91/56 L 95/63 Pulse Oximetry 95 95 Oxygen Flow Rate 0 0 Oxygen Delivery Method Room Air Oxygen Flow Rate 0 Narrative Exam Narrative: Abd benign, wounds intact. drain serous Objective Labs 10/18/23 05:50 10/16/23 22:00 Labs: Laboratory Results - last 24 hr 10/18/23 05:50 WBC 10.3 RBC 3.59 L Hgb 10.7 L Hct 31.4 L MCV 87.5 MCH 29.7 MCHC 34.0 RDW 13.5 Plt Count 196 Neut % (Auto) 90.3 H D Lymph % (Auto) 4.7 L [place] % (Auto) 5.0 Eos % (Auto) 0.0 L Baso % (Auto) 0.0 Neut # (Auto) 9300 H Lymph # (Auto) 500 L [place] # (Auto) 500 Eos # (Auto) 0 Baso # (Auto) 0 PFSH Medical History Hyperlipidemia Hypothyroidism (acquired) Social History household members: spouse Smoking Status: Never smoker Assessment & Plan Post-op Postoperative Procedures: Lap appy Postoperative day: 1 Postoperative status: doing well Postoperative plan: discharge
--- NOTE | 2023-10-18 13:21 | PM.DS.1 ---
History of Present Illness History of Present Illness Date Patient Seen: 10/18/23 Time Patient Seen: 10:00 Chief complaint: appendix pain Narrative: Re admitted from failed medical management of appendicitis. See previous H and P. Discharge Providers Provider Date of admission: 10/16/23 22:14 Discharge Date: 10/18/23 Primary care physician: Verona Hills PA-C Consults: 10/16/23 22:08 Consult to General Surgery Urgent Comment: Consulting Provider: Akilah Esposito Reason for consultation: acute appendicitis Has provider been notified: Yes Discharge provider: Akilah Esposito MD Summary Hospital Course Discharge Diagnosis: S/p lap appy Hospital Course: IV antibiotics with lap appy Status at Discharge Cognitive/behavioral status at discharge: at baseline, oriented Functional status at discharge: independent ambulation Overall status at discharge: patient is progressing back to baseline Time Spent with Patient Time spent: Less than 30 minutes Exam Vital Signs (past 8 hours): - 10/18/23 06:05 10/18/23 08:11 Temperature 96.3 F L 97.7 F Pulse Rate 55 L 50 L Respiratory Rate 16 17 Blood Pressure 91/56 L 95/63 Pulse Oximetry 95 95 Oxygen Flow Rate 0 0 Oxygen Delivery Method Room Air Oxygen Flow Rate 0 Narrative Exam Narrative: no complications Objective Labs 10/18/23 05:50 10/16/23 22:00 Labs: Laboratory Results - last 24 hr 10/18/23 05:50 WBC 10.3 RBC 3.59 L Hgb 10.7 L Hct 31.4 L MCV 87.5 MCH 29.7 MCHC 34.0 RDW 13.5 Plt Count 196 Neut % (Auto) 90.3 H D Lymph % (Auto) 4.7 L [place] % (Auto) 5.0 Eos % (Auto) 0.0 L Baso % (Auto) 0.0 Neut # (Auto) 9300 H Lymph # (Auto) 500 L [place] # (Auto) 500 Eos # (Auto) 0 Baso # (Auto) 0 PFSH Medical History Hyperlipidemia Hypothyroidism (acquired) Social History household members: spouse Smoking Status: Never smoker Discharge Assessment & Plan Assessment and Plan Assessment: s/p lap appy Plan of Treatment: Home with Augmentin for 5 days. Drain removed prior to discharge No lifting <15 lbs for 2 weeks Follow up 1-2 weeks Discharge Plan Discharge Plan Patient Disposition: Home Discharge orders & Medications Prescriptions: New celecoxib [Celebrex] 200 mg Capsule 200 mg PO BID Qty: 30 0RF oxycodone 5 mg Tablet 5 mg PO Q4H PRN (Reason: Pain, Moderate (4-6)) Qty: 20 0RF Continued levothyroxine 50 mcg capsule 50 mcg PO DAILY rosuvastatin 10 mg tablet 10 mg PO DAILY amoxicillin-pot clavulanate 875-125 mg Tablet 1 tab PO BID Qty: 10 0RF Follow up/Referrals: Akilah Esposito MD [Physician] - Verona Hills, PAHemant [Primary Care Provider] - Diet/Activity/Treatments Diet: Diet as Tolerated Activity: no lifting >15 lbs for 2 weeks Skin/Wound/Dressing Care Report to your healthcare provider any signs of infection, such as:: chills, fever, increased pain and unusual drainage Visit Report/Discharge Packet Instructions: Appendectomy -- Laparoscopic Surgery, Amoxicillin and Clavulanic Acid Stand Alone Forms: Patient Portal/API Discharge Data Primary Care Provider: Verona Hills Attending Provider: Akilah Esposito Admit Date/Time: 10/16/23 22:14
--- NOTE | 2023-10-18 13:49 | PC.NURSE ---
KERMIT drain out. Patient given oxycodone... She has been discharged from the hospital. drove patient home.
--- NOTE | 2023-10-21 10:21 | PC.NURSE ---
Late Entry: Piperacillin infusion initiated 10/17 at 12:49 complete at 4:50.
== END 2023-10-18 13:05 | disposition home or self-care (01) ==
LOC: ED 22:04 → AC 22:18
PROVIDERS: Admitting Provider Surgery; Emergency Provider Emergency Medicine; PCP Physician Assistant; Referring Provider Emergency Medicine; Visit Provider Surgery
DX: K35.32 Acute appendicitis with perforation, localized peritonitis, and gangrene, without abscess (principal)
CPT/HCPCS: 44970; 36415; 74177; 80053; 81001; 81003; 83690; 85025; 87086; 96365; 96366; 96375; 96376; 99221; 99283; 99284; G0378; J1100; J1170; J1885; J2405; J2543; J2704; J3010; Q9967

== ENCOUNTER 2023-10-21 08:23 | Emergency (ER) | payer OTHER, SELFPAY ==
[2023-10-20 15:05] VITALS: BMI 25.7
[2023-10-21] VITALS (9 sets, daily range): BP systolic 115–152; BP diastolic 70–91; PULSE 56–85; RESP 9–20; TEMP 36.8; O2SAT 93–97; BMI 27.3
--- NOTE | 2023-10-21 08:39 | ED_ITS ---
HPI - General Adult General Chief complaint: Chest Pain Stated complaint: rt chest pain, fever, nausea, post op problems Time Seen by Provider: 10/21/23 08:36 History of Present Illness HPI narrative: 57-year-old woman with a history of hyper lipidemia, hypothyroidism was seen on October 16 with appendicitis, admitted for medical management, discharged home and came back a few hours later with increasing pain, was taken to the operating room and found to have perforated appendix. She was eventually discharged from the hospital on October 18 and his continue taking Augmentin since then. She comes back this morning complaining of continued right lower quadrant pain and now right upper quadrant and right lower lung pain. She describes a fever yesterday which would be 4 days postop. She is having difficulty taking a deep breath secondary to pain. She also complains that her uvula is irritated. She has been voiding and stooling. Related Data Home Medications Medication Instructions Recorded Confirmed levothyroxine 50 mcg capsule 50 mcg PO DAILY 05/29/22 10/16/23 rosuvastatin 10 mg tablet 10 mg PO DAILY 10/16/23 10/16/23 Previous Rx's Medication Instructions Recorded amoxicillin 875 mg-potassium 1 tab PO BID #10 tabs 10/16/23 clavulanate 125 mg tablet celecoxib 200 mg capsule (Celebrex) 200 mg PO BID #30 caps 10/18/23 oxycodone 5 mg tablet 5 mg PO Q4H PRN Pain, Moderate 10/18/23 (4-6) #20 tabs Allergies Allergy/AdvReac Type Severity Reaction Status Date / Time No Known Drug Allergies Allergy Verified 10/21/23 08:58 Review of Systems Review of Systems Narrative: Pertinent positive and negative findings as per HPI Patient History Medical History (Updated 10/21/23 @ 11:20 by Lindy Clarke MD) Hyperlipidemia Hypothyroidism (acquired) Surgical History (Updated 10/21/23 @ 08:50 by Lindy Clarke MD) History of appendectomy Social History household members: spouse Smoking Status: Never smoker Smoking Status: Never smoker alcohol intake frequency: 0-2 drinks per day Substance Use Type: does not use Exam Narrative Exam Narrative: General: Pale, in pain and emotionally distraught but Able to give a complete and coherent history. Well-nourished well-developed HEENT: Moist mucous membranes, normal sclera with reactive pupils, Neck: No JVD, supple Respiratory: Lungs are clear to auscultation, no wheezing no rales no rhonchi. Minor splinting due to right-sided abdominal pain Cardiac: Regular rate and rhythm no murmurs no bruits Abdomen: Soft, tender along the entire right side with some minor guarding in the right lower quadrant. No flank pain . Surgical sites are clean and dry Skin: Warm and dry, no rashes Neurologic: Grossly neurologically intact with no obvious asymmetries or abnormalities Extremities: No trauma, well perfused Psych: Cooperative, appropriate insight and affect Initial Vital Signs Initial Vital Signs: Vital Signs Temperature 98.2 F 10/21/23 08:30 Pulse Rate 71 10/21/23 08:30 Respiratory Rate 17 10/21/23 08:30 Blood Pressure 137/78 10/21/23 08:30 Pulse Oximetry 97 10/21/23 08:30 Oxygen Delivery Method Room Air 10/21/23 08:30 Course Orders Ordered: ED Orders 10/21/23 08:50 Complete Blood Count AUTO DIFF Stat Comprehensive Metabolic Panel Stat Lactate (Lactic Acid) Stat Lipase Stat 10/21/23 08:53 CT abdomen pelvis w con Stat 10/21/23 09:04 Urine Microscopic Stat 10/21/23 09:37 Blood Culture Stat Hydromorphone HCl (Hydromorphone 0.5 Mg Inj) 0.5 mg IV Q15MIN PRN PRN Reason: Pain, Last Admin: 10/21/23 09:21 Dose: 0.5 mg Documented By: VLAD Discontinued Medications Acetaminophen (Acetaminophen 325 Mg Tablet) 975 mg PO NOW ONE Stop: 10/21/23 08:53 Last Admin: 10/21/23 09:25 Dose: 975 mg Documented By: VLAD Sodium Chloride (Normal Saline 0.9%) 1,000 mls @ 1,000 mls/hr IV BOLUS ONE Stop: 10/21/23 09:51 Last Infusion: 10/21/23 10:27 Dose: Infused Documented By: Admin: 10/21/23 09:20 Dose: 1,000 mls/hr Documented By: VLAD Sodium Chloride (Normal Saline 0.9%) 1,000 mls @ 1,000 mls/hr IV BOLUS ONE Stop: 10/21/23 09:53 Last Admin: 10/21/23 10:47 Dose: 1,000 mls/hr Documented By: MONSE Piperacillin Sod/Tazobactam (Sod 4.5 gm/ Sodium Chloride) 100 mls @ 200 mls/hr IV NOW ONE Stop: 10/21/23 08:55 Last Infusion: 10/21/23 10:27 Dose: Infused Documented By: Admin: 10/21/23 09:44 Dose: 200 mls/hr Documented By: VLAD Ondansetron HCl (Ondansetron 4 Mg/2 Ml Inj) 4 mg IV NOW ONE Stop: 10/21/23 08:53 Last Admin: 10/21/23 09:20 Dose: 4 mg Documented By: VLAD Vital Signs Vital signs: Vital Signs - 8 hr 10/21/23 08:30 10/21/23 08:31 10/21/23 08:31 Temperature 98.2 F Pulse Rate 71 72 Respiratory Rate 17 Blood Pressure 137/78 137/78 Pulse Oximetry 97 97 Oxygen Delivery Method Room Air 10/21/23 09:11 10/21/23 09:12 10/21/23 09:12 Temperature Pulse Rate 70 70 Respiratory Rate 20 16 Blood Pressure 152/91 H Pulse Oximetry 93 97 Oxygen Delivery Method 10/21/23 09:30 10/21/23 09:30 10/21/23 10:00 Temperature Pulse Rate 59 L Respiratory Rate 10 L Blood Pressure 145/74 H 127/77 Pulse Oximetry 97 Oxygen Delivery Method 10/21/23 10:00 10/21/23 10:35 10/21/23 10:36 Temperature Pulse Rate 59 L 85 Respiratory Rate 9 L Blood Pressure 135/73 Pulse Oximetry 96 Oxygen Delivery Method 10/21/23 10:36 Temperature Pulse Rate 66 Respiratory Rate 18 Blood Pressure Pulse Oximetry 96 Oxygen Delivery Method Room Air Medical Decision Making Lab Data 10/21/23 08:50 10/21/23 08:50 Labs: Lab Results 10/21/23 10/21/23 Range/Units 08:50 09:04 WBC 6.0 (4.5-11.0) X10^3/uL RBC 4.24 (4.0-5.2) X10^6/uL Hgb 12.8 (12.0-16.0) g/dL Hct 37.3 (36-46) % MCV 87.9 (80-100) fL MCH 30.2 (26-34) PG MCHC 34.3 (30-36) % RDW 13.3 (11.6-14.8) % Plt Count 301 (150-400) X10^3/uL Neut % (Auto) 75.1 H (50-75) % Lymph % (Auto) 13.8 L (25-40) % [place] % (Auto) 9.4 (3-14) % Eos % (Auto) 1.4 L (2-4) % Baso % (Auto) 0.3 (0-2) % Neut # (Auto) 4500 (4408-3154) /uL Lymph # (Auto) 800 L (7352-7803) /uL [place] # (Auto) 600 (0-900) /uL Eos # (Auto) 100 (0-450) /uL Baso # (Auto) 0 (0-100) /uL Sodium 136 L (137-145) mmol/L Potassium 3.7 (3.4-5.1) mmol/L Chloride 102 (98-107) mmol/L Carbon Dioxide 26 (22-32) mmol/L BUN 6 L (7-17) mg/dL Creatinine 0.58 (0.52-1.04) mg/dL Estimated GFR > 60 (>60) mL/min BUN/Creatinine Ratio 10.3 (6-22) Glucose 105 H (70-100) mg/dL Lactate 1.0 (0.7-2.1) mmol/L Calcium 9.6 (8.4-10.2) mg/dL Total Bilirubin 0.5 (0.2-1.3) mg/dL AST 82 H (14-36) IU/L ALT 220 H (<35) IU/L Alkaline Phosphatase 155 H D (38-126) U/L Total Protein 7.2 (6.3-8.2) g/dL Albumin 3.9 (3.5-5.0) g/dL Globulin 3.3 (1.7-4.1) g/dL Albumin/Globulin Ratio 1.2 (1.0-2.8) Lipase 152 (23-300) U/L Urine RBC 0-1/hpf (0-5/HPF) Urine WBC None seen (0-5/HPF) Ur Squamous Epith Cells None seen (0-5/HPF) Amorphous Sediment 1+ Urine Bacteria None seen (None) Ur Culture Indicated? Cult not indicated Urine Dip Bedside Urine Glucose Negative Bedside Urine Bilirubin - Negative Bedside Urine Ketone +/- 5 Urine Specific [place] 1.010 Bedside Urine Occult Blood +/- Bedside Urine pH 7.0 Bedside Urine Protein - Negative Bedside Urine Urobilinogen - Negative Bedside Urine Nitrite - Negative Bedside Urine Leukocytes - Negative Esterase Point of care testing: Urine Dip Bedside Urine Glucose Negative Bedside Urine Bilirubin - Negative Bedside Urine Ketone +/- 5 Urine Specific [place] 1.010 Bedside Urine Occult Blood +/- Bedside Urine pH 7.0 Bedside Urine Protein - Negative Bedside Urine Urobilinogen - Negative Bedside Urine Nitrite - Negative Bedside Urine Leukocytes - Negative Esterase Imaging Data CT scan - abdomen/pelvis: Radiologist's Impression: INDINGS: Image quality: Diagnostic. Lower Chest: New small bilateral pleural effusions. Bilateral lower lobe compressive/dependent atelectasis. ABDOMEN: Liver: No solid mass. Stable right hepatic lobe subcentimeter hypodensity which is too small to characterize. Gallbladder: No radiopaque gallstones or wall thickening. Biliary ducts: No biliary dilation. Stable mild prominence of the intrahepatic biliary ductal dilatation. Pancreas: No ductal dilation. Spleen: Size is within normal limits. Adrenal Glands: No adrenal nodules. Kidneys and Ureters: No hydronephrosis. No solid mass. No complex renal cystic lesion which requires follow up. Stomach and Bowel: No hiatal hernia. Stomach is decompressed, limiting evaluation, but appears grossly normal. Small and large bowel is normal in caliber, without obstruction. Postsurgical changes of interval stump appendectomy. No adjacent fluid collection. Mild mucosal hyperenhancement of the distal ileum (4/16). Above average colonic stool burden. No pneumatosis, pneumoperitoneum or portal venous gas. Peritoneum: Trace pelvic free fluid Ventral Wall: Small fat containing umbilical hernia. No fluid collection in the anterior abdominal wall Abdominal Nodes: No retroperitoneal or mesenteric adenopathy by size criteria. Vessels: Aorta and inferior vena cava are normal in size. Mild calcification of the abdominal aorta. Patent portal, splenic and bilateral renal veins. PELVIS: Pelvic Organs: Unremarkable. Bladder: Decompressed, limiting evaluation, with no stones or focal contour abnormality. Pelvic Nodes: No enlarged lymph nodes. Miscellaneous: No inguinal hernias are seen. Bones: No acute fracture. No aggressive appearing lytic or blastic osseous lesion. IMPRESSION: 1. Postsurgical changes of interval stump appendectomy. No adjacent fluid collection. Mild mucosal hyperenhancement of the distal ileum may represent ileitis of infectious or inflammatory etiology. If clinical symptoms, persist consider repeat cross- sectional imaging. Above average colonic stool burden which may correlate with constipation. 2. Trace pelvic free fluid, likely reactive. 3. New small bilateral pleural effusions with compressive atelectasis. 4. No portal vein thrombus. 5. Stable mild prominence of the intrahepatic biliary ductal dilatation. Dictated by: Faiza Campbell M.D. on 10/21/2023 at 9:13 MDM Narrative Medical decision making narrative: CC: Right lower lung and right lower quadrant abdominal pain, fever, postop ruptured appendicitis 10/17 Complicating co-morbidities: Discharge after appendectomy on 10/18 Data collected from: patient, Medical records reviewed: Surgical notes are reviewed from medical management for appendectomy admitted on the and surgical management admitted on the Differential considered: Infection, refer diaphragm pain, sepsis Exam documented above, pertinent findings include: Somewhat pale moderate right side abdominal pain including significant pain in the right lower quadrant. Lungs are completely clear. Lab Test results independently reviewed as above. Pertinent findings: CBC is unremarkable Chemistries show normal renal function, AST ALT and alk-phos are all slightly elevated Urinalysis is unremarkable Independently reviewed EKG: Sinus rhythm at a rate of 72. Normal intervals, normal axis. No acute ischemic changes Imaging studies independently reviewed: CT scan shows postsurgical changes consistent with her appendectomy with no adjacent fluid collections to suggest complication or abscess development. Compressive atelectasis bibasilar is appreciated. Treatments: Fluids, Tylenol, Zofran, Dilaudid, Zosyn Discussion: Patient is feeling significantly better. Reviewed labs and CT results. No evidence of sepsis, postsurgical infection, abscess development, alternate complications that would require hospitalization or additional blood work imaging. We talked about atelectasis as a source for fever and need for adequate pain control so that she is able to use an incentive spirometer. She is given instructions on use of and an actual incentive spirometer. She has appropriate pain medications at home. We talked about using MiraLax to help prevent constipation including an extra dose today given the stool noted along the right side of her colon. We also reviewed the irritation over her uvula likely related to her recent intubation. At this point there is no indication for further hospitalization, questions have been answered and she is safe for discharge Discharge Plan Departure Patient Disposition: Home Clinical Impression: Post-operative pain Instructions: DI for Postoperative Pain Activity Restrictions/Additional Instructions: Thank you for coming in today Fortunately, I am not finding any signs of life-threatening abnormalities, sepsis, urinary tract infection, abscess development or surgical complications. The throat pain that you are experiencing is some irritation to your uvula likely secondary to your intubation with your surgery. This will resolve spontaneously I would recommend that you use an incentive spirometer to make sure that your lungs are saying fully inflated to avoid pneumonia as well as postoperative fever. This means that you need to use adequate pain control so that you are able to use your incentive spirometer. I would suggest at least 10 good inspirations during the day. If your watching TV, doing a deep breath every time there is a television commercials that comes on can be helpful. Your CT scan still shows moderate amount of stool through the right side of your colon. I would recommend a dose of MiraLax today and a dose of MiraLax everyday that you use any narcotic for pain control Please do complete your antibiotic, Augmentin, prescription as started. If you find that you are getting worse or develop any new symptoms, please feel free to return to the emergency department for further evaluation. Prescriptions: No Action levothyroxine 50 mcg capsule 50 mcg PO DAILY rosuvastatin 10 mg tablet 10 mg PO DAILY amoxicillin-pot clavulanate 875-125 mg Tablet 1 tab PO BID Qty: 10 0RF celecoxib [Celebrex] 200 mg Capsule 200 mg PO BID Qty: 30 0RF oxycodone 5 mg Tablet 5 mg PO Q4H PRN (Reason: Pain, Moderate (4-6)) Qty: 20 0RF Referrals: [place] PA-C [Primary Care Provider] - Stand Alone Forms: Patient Portal/API
--- NOTE | 2023-10-21 08:53 | DI.CT.S_ITS ---
PROCEDURE: CT ABDOMEN PELVIS W CON INDICATIONS: pain and fever, post op ruptured appy 10/17 TECHNIQUE: After the administration of intravenous contrast, axial sections acquired from the lung bases to the pubic symphysis. Coronal and sagittal reformats were performed. For radiation dose reduction, the following was used: automated exposure control, adjustment of mA and/or kV according to patient size. COMPARISON: [facility], CT, CT ABDOMEN PELVIS W CON, 10/16/2023, 10:00. FINDINGS: Image quality: Diagnostic. Lower Chest: New small bilateral pleural effusions. Bilateral lower lobe compressive/dependent atelectasis. ABDOMEN: Liver: No solid mass. Stable right hepatic lobe subcentimeter hypodensity which is too small to characterize. Gallbladder: No radiopaque gallstones or wall thickening. Biliary ducts: No biliary dilation. Stable mild prominence of the intrahepatic biliary ductal dilatation. Pancreas: No ductal dilation. Spleen: Size is within normal limits. Adrenal Glands: No adrenal nodules. Kidneys and Ureters: No hydronephrosis. No solid mass. No complex renal cystic lesion which requires follow up. Stomach and Bowel: No hiatal hernia. Stomach is decompressed, limiting evaluation, but appears grossly normal. Small and large bowel is normal in caliber, without obstruction. Postsurgical changes of interval stump appendectomy. No adjacent fluid collection. Mild mucosal hyperenhancement of the distal ileum (4/16). Above average colonic stool burden. No pneumatosis, pneumoperitoneum or portal venous gas. Peritoneum: Trace pelvic free fluid Ventral Wall: Small fat containing umbilical hernia. No fluid collection in the anterior abdominal wall Abdominal Nodes: No retroperitoneal or mesenteric adenopathy by size criteria. Vessels: Aorta and inferior vena cava are normal in size. Mild calcification of the abdominal aorta. Patent portal, splenic and bilateral renal veins. PELVIS: Pelvic Organs: Unremarkable. Bladder: Decompressed, limiting evaluation, with no stones or focal contour abnormality. Pelvic Nodes: No enlarged lymph nodes. Miscellaneous: No inguinal hernias are seen. Bones: No acute fracture. No aggressive appearing lytic or blastic osseous lesion. IMPRESSION: 1. Postsurgical changes of interval stump appendectomy. No adjacent fluid collection. Mild mucosal hyperenhancement of the distal ileum may represent ileitis of infectious or inflammatory etiology. If clinical symptoms, persist consider repeat cross-sectional imaging. Above average colonic stool burden which may correlate with constipation. 2. Trace pelvic free fluid, likely reactive. 3. New small bilateral pleural effusions with compressive atelectasis. 4. No portal vein thrombus. 5. Stable mild prominence of the intrahepatic biliary ductal dilatation. Dictated by: Faiza Campbell M.D. on 10/21/2023 at 9:13 Approved by: Faiza Campbell M.D. on 10/21/2023 at 9:24
[2023-10-21 09:07] LABS: Add Manual Diff / Slide Review NO; Basophils Absolute Auto 0 /uL (0-100); Basophils Percent Auto 0.3 % (0-2); Eosinophils Absolute Auto 100 /uL (0-450); Eosinophils Percent Auto 1.4 % (2-4); Hematocrit 37.3 % (36-46); Hemoglobin 12.8 g/dL (12.0-16.0); Lymphocytes Absolute Auto 800 /uL (1100-4500); Lymphocytes Percent Auto 13.8 % (25-40); Mean Corpuscular HGB Conc 34.3 % (30-36); Mean Corpuscular Hemoglobin 30.2 PG (26-34); Mean Corpuscular Volume 87.9 fL (80-100); Monocytes Absolute Auto 600 /uL (0-900); Monocytes Percent Auto 9.4 % (3-14); Neutrophils Absolute Auto 4500 /uL (1500-7000); Neutrophils Percent Auto 75.1 % (50-75); Platelet Count 301 X10^3/uL (150-400); Red Blood Cell Count 4.24 X10^6/uL (4.0-5.2); Red Cell Distribution Width 13.3 % (11.6-14.8)
[2023-10-21 09:19] LABS: Alanine Aminotransferase 220 IU/L (<35); Albumin 3.9 g/dL (3.5-5.0); Albumin Globulin Ratio 1.2 (1.0-2.8); Alkaline Phosphatase 155 U/L (38-126); Aspartate Aminotransferase 82 IU/L (14-36); BUN Creatinine Ratio 10.3 (6-22); Bilirubin Total 0.5 mg/dL (0.2-1.3); Blood Urea Nitrogen 6 mg/dL (7-17); Calcium 9.6 mg/dL (8.4-10.2); Carbon Dioxide 26 mmol/L (22-32); Chloride 102 mmol/L (98-107); Estimated Glomerular Filt Rate > 60 mL/min (>60); Globulin 3.3 g/dL (1.7-4.1); Glucose 105 mg/dL (70-100); HEMOLYSIS 18 (0-50); Lipase 152 U/L (23-300); Potassium 3.7 mmol/L (3.4-5.1); Sodium 136 mmol/L (137-145); Total Protein 7.2 g/dL (6.3-8.2)
[2023-10-21] MEDS: ONDANSETRON 4 MG/2 ML INJ IV (09:20)
[2023-10-21] MEDS: SODIUM CHLORIDE 0.9% 1,000 ML 1000 ML IV ×2 (09:20→10:47)
[2023-10-21] MEDS: HYDROMORPHONE 0.5 MG INJ IV (09:21)
[2023-10-21] MEDS: ACETAMINOPHEN 325 MG TABLET 975 MG PO (09:25)
[2023-10-21] MEDS: PIPERACILLIN/TAZO 4.5 GM in SODIUM CHLORIDE 0.9% 100 ML IV (09:44)
[2023-10-21 10:46] LABS: Amorphous Sediment Urine 1+; Bacteria Urine None Seen; Culture Indicated Urine Cult Not Indicated; RBC Urine 0-1/HPF (0-5/HPF); Squamous Epithelial Cell Urine None Seen (0-5/HPF); WBC Urine None Seen (0-5/HPF)
== END 2023-10-21 11:36 | disposition home or self-care (01) ==
PROVIDERS: Emergency Provider Emergency Medicine; PCP Physician Assistant
DX: G89.18 Other acute postprocedural pain (principal); R10.31 Right lower quadrant pain
CPT/HCPCS: 36415; 74177; 80053; 81003; 81015; 83605; 83690; 85025; 87040; 93005; 96365; 96375; 99284; J1170; J2405; J2543

== ENCOUNTER → 2023-11-16 15:11 | Outpatient (CLI) | payer OTHER, SELFPAY ==
[2023-10-20 15:05] VITALS: BMI 25.7
--- NOTE | 2023-11-16 | DI.US.S_ITS ---
PROCEDURE: US ABDOMEN LIMITED INDICATIONS: ABNORMAL CT OF LIVER TECHNIQUE: Real-time focused scanning was performed of the abdomen, with image documentation. COMPARISON: [facility], CT, CT ABDOMEN PELVIS W CON, 10/21/2023, 9:04. FINDINGS: The subcentimeter subcapsular abnormality in the posterior segment right lobe of the liver seen on CT represents a small benign liver cyst measuring 1.4 x 1.1 cm in diameter. No solid liver masses. Normal liver echo pattern. The gallbladder is unremarkable without stones or wall thickening. There are no dilated bile ducts. The common bile duct measures 6 mm. Visualized portions the pancreas are unremarkable. IMPRESSION: The small liver lesion seen on CT corresponds to a benign cyst on ultrasound. Dictated by: Emmett Brennan M.D. on 11/16/2023 at 17:55 Approved by: Emmett Brennan M.D. on 11/16/2023 at 17:58
== END ==
PROVIDERS: PCP Physician Assistant; Referring Provider Physician Assistant; Visit Provider Physician Assistant
DX: K76.89 Other specified diseases of liver (principal); R93.2 Abnormal findings on diagnostic imaging of liver and biliary tract
CPT/HCPCS: 76705

== ENCOUNTER → 2024-04-05 11:12 | Outpatient (CLI) | payer OTHER, SELFPAY ==
[2023-10-20 15:05] VITALS: BMI 25.7
--- NOTE | 2024-04-05 11:13 | DI.MG.S_ITS ---
BILATERAL DIGITAL SCREENING MAMMOGRAM 3D/2D WITH CAD: 04/05/2024 CLINICAL: Routine screening. Comparison is made to exams dated: 04/01/2023 mammogram - [facility], 11/30/2021 mammogram, and 11/03/2020 mammogram - outside location. Both breasts are extremely dense, which lowers the sensitivity of mammography (category d />75% glandular tissue). Current study was also evaluated with a Computer Aided Detection (CAD) system. No significant masses, calcifications, or other findings are seen in either breast. There has been no significant interval change. IMPRESSION: NEGATIVE There is no mammographic evidence of malignancy. A 1 year screening mammogram is recommended. Based on the Tyrer Cuzick model (a risk assessment model) the patient's lifetime risk is 16.0% and her 10 year risk is 6.3%. According to the ACR, ACS, and NCCN guidelines, an annual breast MRI exam along with mammogram is recommended if the patient's lifetime risk is 20% or greater. This exam was interpreted at Station ID: [id number]. NOTE: For mammograms, a report in lay terms will be sent to the patient. Approximately 15% of breast malignancies will not be visualized mammographically. In the management of a palpable breast mass, a negative mammogram must not discourage biopsy of a clinically suspicious lesion. Electronically Signed By: Juanito wilhelm/nadir:04/05/2024 16:10:56 letter sent: Normal Exam ACR BI-RADS Category 1: Negative [id number]
== END ==
LOC: MAMMO 11:13
PROVIDERS: PCP Physician Assistant; Referring Provider Physician Assistant; Visit Provider Physician Assistant
DX: Z12.31 Encounter for screening mammogram for malignant neoplasm of breast (principal); R92.343 Mammographic extreme density, bilateral breasts
CPT/HCPCS: 77063; 77067

== ENCOUNTER → 2024-10-11 14:14 | Outpatient (CLI) | payer OTHER, SELFPAY ==
[2023-10-20 15:05] VITALS: BMI 25.7
--- NOTE | 2024-10-11 14:16 | DI.CT.S_ITS ---
PROCEDURE: CT CHEST WO CON INDICATIONS: Solitary pulmonary nodule TECHNIQUE: Noncontrast 2.0-2.5 mm thick sections acquired from the pulmonary apices to the posterior costophrenic angles. 7 mm thick axial MIP and 5 mm coronal and sagittal reformats were then acquired. For radiation dose reduction, the following was used: automated exposure control, adjustment of mA and/or kV according to patient size. COMPARISON: [facility], CT, CT ABDOMEN PELVIS W CON, 10/16/2023, 10:00. FINDINGS: Image quality: Diagnostic. Lower Neck: No enlarged lymph nodes. Thyroid: No thyroid nodules which require sonographic follow up, per consensus guidelines. Axillae: No enlarged lymph nodes. Chest Wall: Unremarkable. Bones: Unremarkable. Lungs and Pleura: No pneumothorax or pleural effusions. No consolidation or suspicious nodules. Stable 5 millimeter right middle lobe nodule (series 3 image number 202). Heart: Heart size is normal. No pericardial effusion. Thoracic Vessels: The aorta and pulmonary arteries demonstrate normal size. Mediastinum and [place]: No enlarged lymph nodes. Esophagus: No wall thickening. No hiatal hernia. Upper Abdomen: Visualized upper abdomen solid organs and bowel loops appear normal. IMPRESSION: Stable 5 millimeter right middle lobe lung nodule since October 16, 2023 CT Fleischner Society criteria for SOLID lung nodule followup. Nodule size (mm)Low-risk patientHigh-risk patient<6 (single or multiple)No routine followup.Optional CT at 12 months. 6-8 (single or multiple)CT at 6-12 months, then optional CT at 18-24 mo.CT at 6-12 months, then CT at 18-24 months. >8 (single)CT at 3 months, PET-CT, or biopsy. Same as for low-risk pts. >8 (multiple)CT at 3-6 months, then optional CT at 18-24 mo.CT at 3-6 months, then CT at 18-24 months. Fleischner Society criteria for SUB-SOLID lung nodule followup. Solitary pure ground-glass nodules<6 mm (ground glass or part solid)No followup needed. 6 mm or larger (ground glass)CT at 6-12 months to confirm persistence, then CT every 2 years until 5 years.6 mm or larger (part solid)CT at 3-6 months to confirm persistence, then annual CT until 5 years if unchanged and solid component remains <6 mm. Multiple sub-solid nodules<6 mmCT at 3-6 months, then CT consider at 2 & 4 years for high risk patients. [address] at 3-6 months. Subsequent management based on most suspicious lesions. Recommendations do not apply to lung cancer screening, patients with immunosuppression, or patients with known primary cancer. Dictated by: Macario Alvares M.D. on 10/12/2024 at 11:10 Approved by: Macario Alvares M.D. on 10/12/2024 at 11:13
== END ==
PROVIDERS: PCP Physician Assistant; Referring Provider Physician Assistant; Visit Provider Physician Assistant
DX: R91.1 Solitary pulmonary nodule (principal)
CPT/HCPCS: 71250

== ENCOUNTER 2024-10-30 17:50 | Emergency (ER) | payer OTHER, SELFPAY ==
[2023-10-20 15:05] VITALS: BMI 25.7
[2024-10-30 18:16] VITALS: BP 118/74; PULSE 67; RESP 4; TEMP 37; O2SAT 97; BMI 25.7
--- NOTE | 2024-10-30 18:19 | DI.RAD.S_ITS ---
PROCEDURE: XR TIBIA FIBULA LT 2V INDICATIONS: leg injury TECHNIQUE: 2 views of the tibia and fibula were acquired. COMPARISON: None. FINDINGS: Bones: No fractures or dislocations. No suspicious bony lesions. Soft tissues: No suspicious soft tissue calcifications or masses. IMPRESSION: No acute bony abnormality. Approved by: Charline Courtney M.D.,Ph.D. on 10/30/2024 at 20:06
[2024-10-30 21:17] VITALS: BP 140/81; PULSE 64; TEMP 37.1; O2SAT 97
--- NOTE | 2024-10-30 21:32 | ED.LOWEXIN ---
HPI - Extremity Injury (Lower) General Chief Complaint: Extremity Injury, Lower Stated Complaint: lt lower leg injury Time Seen by Provider: 10/30/24 21:19 Mode of arrival: Wheelchair History of Present Illness HPI Narrative: 58-year-old female presents for evaluation of left lower leg injury. She was skiing at [facility] when she fell. She says she was not certain what happened but her skis went [address] and she fell, landing on her legs. Reports pain in her left leg just distal to her left knee. She was initially able to ski down a short distance, but the pain worsened and she had to be taken down the rest of the mountain. Able to bear weight, however it is painful. Denies numbness/weakness Related Data Home Medications Medication Instructions Recorded Confirmed levothyroxine 50 mcg capsule 50 mcg PO DAILY 05/29/22 10/16/23 rosuvastatin 10 mg tablet 10 mg PO DAILY 10/16/23 10/16/23 Previous Rx's Medication Instructions Recorded amoxicillin 875 mg-potassium 1 tab PO BID #10 tabs 10/16/23 clavulanate 125 mg tablet celecoxib 200 mg capsule (Celebrex) 200 mg PO BID #30 caps 10/18/23 oxycodone 5 mg tablet 5 mg PO Q4H PRN Pain, Moderate 10/18/23 (4-6) #20 tabs Allergies Allergy/AdvReac Type Severity Reaction Status Date / Time No Known Drug Allergies Allergy Verified 10/30/24 18:16 Patient History Medical History Hyperlipidemia Hypothyroidism (acquired) Surgical History History of appendectomy Social History household members: spouse Smoking Status: Never smoker Smoking Status: Never smoker alcohol intake frequency: 0-2 drinks per day Exam Initial Vital Signs Initial Vital Signs: Vital Signs Temperature 98.6 F 10/30/24 18:16 Pulse Rate 67 10/30/24 18:16 Respiratory Rate 4 L 10/30/24 18:16 Blood Pressure 118/74 10/30/24 18:16 Pulse Oximetry 97 10/30/24 18:16 Oxygen Delivery Method Room Air 10/30/24 18:16 Const: Awake, alert, no acute distress, nontoxic appearing MSK: No deformity, tenderness along proximal tibial region. Full ROM of knee Skin: Warm, Dry, intact, no rashes Neuro: AO x3, CN II-XII grossly intact, moves all extremities Course Orders Ordered: ED Orders 10/30/24 18:19 XR tibia fibula LT 2V Stat Vital Signs Vital signs: Vital Signs - 8 hr 10/30/24 18:16 10/30/24 21:17 10/30/24 21:17 Temperature 98.6 F 98.8 F Pulse Rate 67 64 Respiratory Rate 4 L Blood Pressure 118/74 140/81 Pulse Oximetry 97 97 Oxygen Delivery Method Room Air Room Air MDM - Extremity Injury (Lower) Imaging Data Extremity x-ray #1: Radiologist's Impression: PROCEDURE: XR TIBIA FIBULA LT 2V INDICATIONS: leg injury TECHNIQUE: 2 views of the tibia and fibula were acquired. COMPARISON: None. FINDINGS: Bones: No fractures or dislocations. No suspicious bony lesions. Soft tissues: No suspicious soft tissue calcifications or masses. IMPRESSION: No acute bony abnormality. Approved by: Charline Courtney M.D.,Ph.D. on 10/30/2024 at 20:06 [facility] Narrative Medical decision making narrative: Fall while skiing. Reporting left lower extremity pain. Neurovascularly intact. No obvious deformity. Able to bear weight, however it was painful. X-rays negative for acute findings. Patient relieved to know that she was not have a fracture. Supportive measures counseled for home. Discharge Plan Departure Patient Disposition: Home Clinical Impression: Contusion of left lower leg Instructions: DI for Contusion Activity Restrictions/Additional Instructions: Take Tylenol and ibuprofen as needed for pain or discomfort. Apply ice as needed to areas of swelling. You may walk as tolerated on your leg. If you continued to have pain a referral number to orthopedic surgery has been provided and you may call for a follow up appointment. Prescriptions: No Action levothyroxine 50 mcg capsule 50 mcg PO DAILY rosuvastatin 10 mg tablet 10 mg PO DAILY amoxicillin-pot clavulanate 875-125 mg Tablet 1 tab PO BID Qty: 10 0RF celecoxib [Celebrex] 200 mg Capsule 200 mg PO BID Qty: 30 0RF oxycodone 5 mg Tablet 5 mg PO Q4H PRN (Reason: Pain, Moderate (4-6)) Qty: 20 0RF Referrals: Aura Holder MD [Physician] - [place] PA-C [Primary Care Provider] - Stand Alone Forms: Patient Portal/API/Survey
== END 2024-10-30 21:40 | disposition home or self-care (01) ==
PROVIDERS: Emergency Provider Emergency Medicine; PCP Physician Assistant
DX: S80.12XA Contusion of left lower leg, initial encounter (principal); W19.XXXA Unspecified fall, initial encounter; Y93.23 Activity, snow (alpine) (downhill) skiing, snowboarding, sledding, tobogganing and snow tubing
CPT/HCPCS: 73590; 99281; 99283

== ENCOUNTER → 2025-04-11 07:46 | Outpatient (CLI) | payer OTHER, SELFPAY ==
[2023-10-20 15:05] VITALS: BMI 25.7
--- NOTE | 2025-04-11 07:48 | DI.MG.S_ITS ---
MM screening mammo BI: 04/11/2025. BI-RADS: 1 CLINICAL: 59-year old female for bilateral screening mammogram. Tyrer-Cuzick lifetime risk of 7.8%. No personal or first-degree family history of breast cancer. The patient is status-post reduction mammoplasty. PRIOR EXAMS 04/05/2024, 04/01/2023. MAMMOGRAPHY TECHNIQUE: 2D and 3D (tomosynthesis) digital mammographic views obtained, with additional images as needed for full coverage. Current study was also evaluated with a Computer Aided Detection (CAD) system. DENSITY C. The breasts are heterogeneously dense, which may obscure small masses. MAMMOGRAPHY FINDINGS Bilateral: No suspicious mass, asymmetry, microcalcification, or other abnormality seen. IMPRESSION: * No evidence of malignancy. RECOMMENDATIONS Bilateral * Annual screening mammography. OVERALL ASSESSMENT CATEGORY BI-RADS-1: Negative. [employer] recommends annual screening mammography beginning at age 40 for women with average risk of breast cancer. ELECTRONICALLY SIGNED: Richar Matson M.D. on 04/11/2025 at 12:12:50 PM PT Interpreting Station ID: [id number]
== END ==
PROVIDERS: PCP Physician Assistant; Referring Provider Physician Assistant; Visit Provider Physician Assistant
DX: Z12.31 Encounter for screening mammogram for malignant neoplasm of breast (principal); R92.333 Mammographic heterogeneous density, bilateral breasts
CPT/HCPCS: 77063; 77067